=== PATIENT | female | born 1955 | race Caucasian/White ===

== ENCOUNTER 2016-06-20 03:59 | Emergency (ER) | payer BC ==
[~2016-06-20 03:59] MED LIST: CONZIP200 MG PO; CYMBALTA60 MG PO; ELIQUIS2.5 MG PO; HYDROMORPHONE HC4 MG PO; KLONOPIN1 MG PO; KLONOPIN2 MG PO; LISINOPRIL-HCT1 EAC3 PO; LORAZEPAM2 MG PO; OXYCODONE HCL 30 MG; PERCOCET 10/1 TABLET PO; TRAMADOL HCL50 MG PO; ZESTORETIC 20-1 EAC1 NG; ZESTORETIC 20-1 EAC1 PO
== END 2016-06-20 06:34 ==
LOC: EME 03:59
PROC: 5A2204Z Restoration of Cardiac Rhythm, Single (ICD-10-PCS; principal; 2016-06-20)
DX: I46.9 Cardiac arrest, cause unspecified (principal); I10 Essential (primary) hypertension
CPT/HCPCS: 99281; 99285; J0171; J2310